=== PATIENT | female | born 1970 | race Caucasian/White ===

== ENCOUNTER 2016-09-21 19:45 | Inpatient (IN) | payer OTHER ==
[~2016-09-21] VITALS: Ht 170.2 cm; Wt 77.6 kg
[~2016-09-21 19:45] MED LIST: ADVAIR 250/501 DISK IH; AMOXICILLIN500 MG PO; CELEXA40 MG PO; CHANTIX1 EACH PO; CONZIP100 MG PO; DEPAKOTE ER250 MG PO; DEPAKOTE125 MG PO; IBUPROFEN800 MG PO; K-DUR20 MEQ PO; NAPROXEN250 MG PO; NEURONTIN300 MG PO; NEURONTIN600 MG PO; PANTOPRAZOLE SO40 MG PO; PROAIR HFA8.5 GM IH; PROTONIX40 MG PO; SPIRIVA1 INHALATI IH; TRAMADOL HCL50 MG PO; VENTOLIN HFA18 GM IH; ZYRTEC10 M3 PO
[2016-09-21 20:16] LABS: AMPHETAMINE NEGATIVE (500 ng/mL); BARBITURATES NEGATIVE (200 ng/mL); BENZODIAZEPINES PRESUMPTIVE POSITIVE (150 ng/mL); COCAINE NEGATIVE (150 ng/mL); INTERNAL CONTROLS VALID? YES; METHADONE NEGATIVE (200 ng/mL); METHAMPHETAMINE NEGATIVE (500 ng/mL); OPIATES (MORPHINE) NEGATIVE (100 ng/mL); OXYCODONE NEGATIVE (100 ng/mL); PHENCYCLIDINE NEGATIVE (25 ng/mL); PROPOXYPHENE NEGATIVE (300 ng/mL); THC CANNABINOIDS NEGATIVE (50 ng/mL); TRICYCLIC ANTIDEPRESSANTS NEGATIVE (300 ng/mL)
[2016-09-21 20:17] LABS: ADD MEDTOX COMMENT Y
[2016-09-21 20:50] LABS: BENZODIAZEPINES QUANT VALUE 0 NG/ML; BENZODIAZEPINES, URINE SCREEN Negative (200 ng/mL)
[2016-09-21 21:56] LABS: HEMATOCRIT 45.8 % (36.0-46.0); MCH 35.3 PG (29.0-34.0); MCHC 35.2 G/DL (30.0-36.0); MCV 100.4 FL (83-99); MEAN PLAT.VOLUME 9.5 uM^3 (9.5-12.4); PLATELET COUNT 360 K/uL (156-360); RBC DIS.WIDTH-CV 13.7 % (11.8-14.6); RBC DIS.WIDTH-SD 50.4 % (39-53); RED BLOOD COUNT 4.56 M/uL (3.80-5.20); WHITE BLOOD COUNT 10.6 K/uL (4.1-10.2)
[2016-09-21 22:12] LABS: CHLORIDE 103 mEq/L (99-109); POTASSIUM 4.2 mEq/L (3.7-5.4); SODIUM 140 mEq/L (136-147)
[2016-09-21 22:25] LABS: QUANTITATIVE HCG < 4.0 MIU/ML
[2016-09-21 23:16] LABS: GFR ESTIMATE (CALCULATED) > 59 mL/min/; GLUCOSE 82 mg/dL (70-99); SAMPLE HEMOLYSIS CHECK 0; SAMPLE ICTERIC CHECK 0; SAMPLE LIPEMIA CHECK 0; SERUM ETHYL ALCOHOL 221 mg/dL; UREA NITROGEN (BUN) 7 mg/dL (9-23)
[2016-09-22] MEDS ORDERED: INCRUSE ELLI62.5 MCG IH (05:02)
[2016-09-22] MEDS ORDERED: FLONASE16 G1 BOTH NARES (05:03)
[2016-09-22] MEDS ORDERED: CLONAZEPAM0.5 MG PO (05:03)
[2016-09-22] MEDS ORDERED: ROXICODONE5 MG PO (05:05)
[2016-09-22] MEDS ORDERED: METHADONE10 MG PO (05:06)
[2016-09-22] MEDS ORDERED: PRILOSEC20 MG PO (05:07)
[2016-09-22] MEDS ORDERED: VOLTAREN75 MG PO (05:09)
[2016-09-22] MEDS ORDERED: METOPROLOL SUCC50 MG PO (05:09)
[2016-09-22] MEDS ORDERED: PAXIL20 MG PO (05:09)
[2016-09-22 06:42] VITALS: BP 122/66
[2016-09-22 07:51] VITALS: BP 112/58
[2016-09-22 15:41] VITALS: BP 102/57
[2016-09-23 07:22] VITALS: BP 127/63
[2016-09-23 11:06] VITALS: BP 111/75
[2016-09-23] MEDS ORDERED: DULOXETINE HCL30 MG PO (12:53)
== END 2016-09-23 13:59 | DRG 881 ==
LOC: EME 19:45 → EDOF 09-22 03:37 → 1WEST 09-22 05:20
DX: F34.1 Dysthymic disorder (principal); F10.239 Alcohol dependence with withdrawal, unspecified; F14.20 Cocaine dependence, uncomplicated; R45.851 Suicidal ideations; F41.9 Anxiety disorder, unspecified; I10 Essential (primary) hypertension; J44.9 Chronic obstructive pulmonary disease, unspecified; F17.200 Nicotine dependence, unspecified, uncomplicated; Z59.0 Homelessness; Z87.442 Personal history of urinary calculi
CPT/HCPCS: 80048; 84702; 84999; 85027; 90839; 93005; 94640; 94640 76; 94644; 99202; 99281; 99285; G0480